=== PATIENT | female | born 1995 | race African-American/Black ===

== ENCOUNTER 2019-08-30 15:52 | Emergency (ER) | payer OTHER ==
[~2019-08-30] VITALS: Ht 157.5 cm; Wt 127.0 kg
[2019-08-30 16:00] VITALS: BP 123/82
[2019-08-30] MEDS ORDERED: NAPROSYN500 MG PO (16:20)
[2019-08-30] MEDS ORDERED: MEDROLDOSEPACK PO (16:20)
[2019-08-30] MEDS ORDERED: MAGIC MOUTHWASH SW&SWALLOW (16:20)
== END 2019-08-30 16:50 | disposition home or self-care (01) ==
LOC: ER 15:52
DX: J02.0 Streptococcal pharyngitis (principal)